=== PATIENT | female | born 1980 | race Caucasian/White ===

== ENCOUNTER 2024-05-10 13:51 | Emergency (ER) | payer MEDICAID ==
[~2024-05-10] VITALS: Ht 152.4 cm; Wt 63.0 kg
[2024-05-10] MEDS ORDERED: DICL250C PO (13:59)
[2024-05-10] MEDS ORDERED: METF-1211 PO (13:59)
[2024-05-10] MEDS ORDERED: CLIN300C58 PO (13:59)
[2024-05-10] MEDS: LIDOCAINE 1% 10 ML VIAL ID ONE (14:56)
[2024-05-10] MEDS: HYDROCODONE/ACETAMINOPHEN 5-325 MG TABLET PO ONE (15:27)
[2024-05-10 16:09] VITALS: BP 150/78; PULSE 105; RESP 20; TEMP 97.9; O2SAT 100
[2024-05-10] MEDS ORDERED: HYDR-4062 PO (16:10)
[2024-05-10] MEDS ORDERED: CEPH-558 PO (16:10)
== END 2024-05-10 16:37 | disposition home or self-care (01) ==
LOC: EMS 13:51
DX: L02.212 Cutaneous abscess of back [any part, except buttock and flank] (principal); E11.9 Type 2 diabetes mellitus without complications
CPT/HCPCS: 99283; 10060; 82962; J3490

== ENCOUNTER 2024-05-17 21:17 | Inpatient (IN) | payer MEDICAID ==
[~2024-05-17] VITALS: Ht 154.9 cm; Wt 61.0 kg
[~2024-05-17 21:17] MED LIST: CEPH-558 PO; CLIN300C58 PO; DICL250C PO; HYDR-4062 PO; METF-1211 PO
[2024-05-18] MEDS: VANCOMYCIN HCL 1.5 GM in DEXTROSE 5%-WATER 250 ML IV ONE (02:56)
[2024-05-18 03:30] LABS: BASOPHILS % (AUTO) 0.3 % (0.0-2.0); EOSINOPHILS % (AUTO) 0.2 % (1.0-6.0); HEMATOCRIT 35.6 % (36-46); HEMOGLOBIN 11.7 g/dL (12.0-16.0); LYMPHOCYTES # (AUTO) 0.9 K/uL (1.0-4.8); LYMPHOCYTES % (AUTO) 5.4 % (22.0-44.0); MEAN CORPUSCULAR HEMOGLOBIN 28.3 pg (26.0-34.0); MEAN CORPUSCULAR HGB CONC 32.9 G/dL (31.0-37.0); MEAN CORPUSCULAR VOLUME 86 fL (80-100); MONOCYTES % (AUTO) 6.3 % (2.0-9.0); NEUTROPHILS # (AUTO) 14.3 K/uL (1.8-7.7); PLATELET COUNT (AUTO) 471 K/uL (150-450); RED BLOOD CELL COUNT(AUTO) 4.14 MIL/uL (4.00-5.20); RED CELL DISTRIBUTION WIDTH 14.9 % (11.5-14.5); WHITE BLOOD COUNT (AUTO) 16.3 K/uL (4.5-11.0)
[2024-05-18 03:31] LABS: NEUTROPHILS % (AUTO) 87.8 % (40.0-70.0)
[2024-05-18 03:38] LABS: ANION GAP 14 mmol/L (8-16); CARBON DIOXIDE 21 mmol/L (22-29); CHLORIDE 96 mmol/L (98-107); CREATININE 0.54 mg/dL (0.60-1.30); GLOMERULAR FILTR. RATE CALC > 60 mL/min (>60); GLUCOSE,RANDOM 329 mg/dL (70-110); POTASSIUM 4.6 mmol/L (3.5-5.1); SODIUM SERUM 130 mmol/L (136-145); UREA NITROGEN, BLOOD 9 mg/dL (7-18)
[2024-05-18] MEDS: HYDROCODONE/ACETAMINOPHEN 5-325 MG TABLET PO ONE (04:10)
[2024-05-18] MEDS ORDERED: 0.9% SODIUM CHLORIDE 10 ML SYRINGE IVP PRN (09:15)
[2024-05-18] MEDS: SODIUM CHLORIDE 0.9% 1,850 ML IV ONE (09:35)
[2024-05-18 09:47] LABS: BASOPHILS % (AUTO) 0.2 % (0.0-2.0); EOSINOPHILS % (AUTO) 0.3 % (1.0-6.0); HEMATOCRIT 33.4 % (36-46); HEMOGLOBIN 10.9 g/dL (12.0-16.0); LYMPHOCYTES # (AUTO) 1.1 K/uL (1.0-4.8); LYMPHOCYTES % (AUTO) 7.7 % (22.0-44.0); MEAN CORPUSCULAR HGB CONC 32.5 G/dL (31.0-37.0); MEAN CORPUSCULAR VOLUME 86 fL (80-100); MONOCYTES # (AUTO) 1.1 K/uL (0.1-1.0); MONOCYTES % (AUTO) 7.6 % (2.0-9.0); NEUTROPHILS # (AUTO) 11.9 K/uL (1.8-7.7); NEUTROPHILS % (AUTO) 84.2 % (40.0-70.0); PLATELET COUNT (AUTO) 421 K/uL (150-450); RED BLOOD CELL COUNT(AUTO) 3.89 MIL/uL (4.00-5.20); RED CELL DISTRIBUTION WIDTH 15.1 % (11.5-14.5); WHITE BLOOD COUNT (AUTO) 14.1 K/uL (4.5-11.0)
[2024-05-18 09:54] LABS: ANION GAP 13 mmol/L (8-16); CALCIUM, TOTAL 8.4 mg/dL (8.8-10.5); CARBON DIOXIDE 19 mmol/L (22-29); CHLORIDE 99 mmol/L (98-107); CREATININE 0.46 mg/dL (0.60-1.30); GLOMERULAR FILTR. RATE CALC > 60 mL/min (>60); GLUCOSE,RANDOM 281 mg/dL (70-110); POTASSIUM 4.2 mmol/L (3.5-5.1); SODIUM SERUM 131 mmol/L (136-145); UREA NITROGEN, BLOOD 6 mg/dL (7-18)
[2024-05-18] MEDS ORDERED: SODIUM CHLORIDE 0.9% 100 ML ONE (09:57)
[2024-05-18] MEDS ORDERED: IOHEXOL 350 MG/ML 100 ML VIAL ONE (09:57)
[2024-05-18] MEDS ORDERED: DEXTROSE 50%-WATER 25 GM/50 ML SYRINGE IVP PRN (10:00)
[2024-05-18 10:01] LABS: ALANINE AMINOTRANSFERASE 19 U/L (12-78); ALBUMIN 1.7 g/dL (3.4-5.0); ALKALINE PHOSPHATASE 185 U/L (46-116); ASPARTATE AMINOTRANSFERASE 9 U/L (15-37); BILIRUBIN,TOTAL 0.3 mg/dL (0.1-1.0); TOTAL PROTEIN, SERUM 6.1 g/dL (6.4-8.2)
[2024-05-18 10:02] LABS: LACTIC ACID 0.7 mmol/L (0.4-2.0)
[2024-05-18 10:18] LABS: LACTATE DEHYDROGENASE 107 U/L (81-234)
[2024-05-18] MEDS: HEPARIN SODIUM,PORCINE 5,000 UNITS/ML VIAL SQ SCH (10:29)
[2024-05-18] MEDS: INSULIN GLARGINE,HUM.REC.ANLOG 100 UNITS/ML SQ SCH (10:29)
[2024-05-18] MEDS: PIPERACILLIN/TAZO 3.375 GM/D5W 50 ML IV SCH (10:38)
[2024-05-18] MEDS ORDERED: NALOXONE HCL 1 MG/ML 2 ML SYRINGE IVP PRN (10:45)
[2024-05-18] MEDS: ONDANSETRON HCL 4 MG/2 ML VIAL IVP PRN (11:08)
[2024-05-18] MEDS: MORPHINE SULFATE 2 MG/ML SYRINGE IVP PRN (11:09)
[2024-05-18 12:21] LABS: GLUCOMETER DEV NAME(LOC) ER.7; GLUCOSE,POINT OF CARE 250 MG/DL (70-110)
[2024-05-18] MEDS: VANCOMYCIN HCL 1 GM/D5% WATER 200 ML IV SCH (15:49)
[2024-05-18] MEDS: INSULIN LISPRO 100 UNITS/ML SQ PRN (16:41)
[2024-05-18] MEDS: DOCUSATE SODIUM 100 MG CAPSULE PO SCH (20:20)
[2024-05-18 21:06] LABS: GLUCOMETER DEV NAME(LOC) ER.7; GLUCOSE,POINT OF CARE 408 MG/DL (70-110)
[2024-05-18] MEDS: ACETAMINOPHEN 325 MG TABLET PO PRN (21:15)
[2024-05-18 21:45] VITALS: BP 136/76; PULSE 103; RESP 18; TEMP 100.8; O2SAT 98
[2024-05-18] MEDS ORDERED: SODIUM CHLORIDE 0.9% 500 ML IV ONE (22:42)
[2024-05-18 22:45] VITALS: TEMP 99.3
[2024-05-18] MEDS: SODIUM CHLORIDE 0.9% 1,000 ML IV ONE (23:42)
[2024-05-19 04:37] VITALS: BP 133/75; PULSE 105; RESP 18; TEMP 98.6; O2SAT 96
[2024-05-19 07:36] LABS: BASOPHILS % (AUTO) 0.3 % (0.0-2.0); EOSINOPHILS % (AUTO) 0.2 % (1.0-6.0); HEMATOCRIT 32.7 % (36-46); HEMOGLOBIN 10.7 g/dL (12.0-16.0); LYMPHOCYTES % (AUTO) 5.8 % (22.0-44.0); MEAN CORPUSCULAR HGB CONC 32.6 G/dL (31.0-37.0); MEAN CORPUSCULAR VOLUME 86 fL (80-100); MONOCYTES % (AUTO) 5.7 % (2.0-9.0); NEUTROPHILS # (AUTO) 15.2 K/uL (1.8-7.7); PLATELET COUNT (AUTO) 443 K/uL (150-450); RED BLOOD CELL COUNT(AUTO) 3.81 MIL/uL (4.00-5.20); RED CELL DISTRIBUTION WIDTH 14.7 % (11.5-14.5); WHITE BLOOD COUNT (AUTO) 17.3 K/uL (4.5-11.0)
[2024-05-19 07:41] LABS: GLUCOMETER DEV NAME(LOC) 6S.1D; GLUCOSE,POINT OF CARE 364 MG/DL (70-110)
[2024-05-19 07:48] LABS: ANION GAP 10 mmol/L (8-16); CALCIUM, TOTAL 8.4 mg/dL (8.8-10.5); CARBON DIOXIDE 23 mmol/L (22-29); CHLORIDE 101 mmol/L (98-107); CREATININE 0.51 mg/dL (0.60-1.30); GLOMERULAR FILTR. RATE CALC > 60 mL/min (>60); GLUCOSE,RANDOM 217 mg/dL (70-110); POTASSIUM 3.2 mmol/L (3.5-5.1); SODIUM SERUM 134 mmol/L (136-145); UREA NITROGEN, BLOOD 8 mg/dL (7-18)
[2024-05-19 09:10] VITALS: BP 142/72; PULSE 107; RESP 18; TEMP 99.3; O2SAT 100
[2024-05-19] MEDS ORDERED: POTASSIUM CHL 10 MEQ/WATER 50 ML IV PRN (09:30)
[2024-05-19] MEDS ORDERED: DEXTROSE 50%-WATER 25 GM/50 ML SYRINGE IVP PRN (09:45)
[2024-05-19] MEDS: POTASSIUM CHLORIDE 20 MEQ ER TABLET PO PRN (11:34)
[2024-05-19] MEDS ORDERED: NALOXONE HCL 1 MG/ML 2 ML SYRINGE IVP PRN (12:00)
[2024-05-19] MEDS: INSULIN LISPRO 100 UNITS/ML SQ PRN (12:13)
[2024-05-19] MEDS ORDERED: SODIUM CHLORIDE 0.9% 250 ML IV ONE (12:31)
[2024-05-19] MEDS: MAGNESIUM SULFATE 3 GM in DEXTROSE 5%-WATER 100 ML IV ONE (13:09)
[2024-05-19 17:08] VITALS: BP 136/72; PULSE 108; RESP 16; TEMP 98.7; O2SAT 100
[2024-05-19 17:55] LABS: GLUCOMETER DEV NAME(LOC) 6S.1D; GLUCOSE,POINT OF CARE 363 MG/DL (70-110)
[2024-05-19 17:55] LABS: GLUCOMETER DEV NAME(LOC) 6S.1D; GLUCOSE,POINT OF CARE 297 MG/DL (70-110)
[2024-05-19 22:55] VITALS: BP 131/71; PULSE 98; RESP 18; TEMP 98.9; O2SAT 99
[2024-05-20] MEDS: SODIUM CHLORIDE 0.9% 500 ML IV ONE (00:28)
[2024-05-20 05:00] VITALS: BP 143/80; PULSE 97; RESP 19; TEMP 98.1; O2SAT 98
[2024-05-20 05:41] LABS: GLUCOMETER DEV NAME(LOC) 6S.1D; GLUCOSE,POINT OF CARE 280 MG/DL (70-110)
[2024-05-20 08:06] LABS: GLUCOMETER DEV NAME(LOC) 6N.2B; GLUCOSE,POINT OF CARE 176 MG/DL (70-110)
[2024-05-20] MEDS: INSULIN GLARGINE,HUM.REC.ANLOG 100 UNITS/ML SQ SCH (08:13)
[2024-05-20 08:49] LABS: ANION GAP 7 mmol/L (8-16); CALCIUM, TOTAL 8.2 mg/dL (8.8-10.5); CARBON DIOXIDE 26 mmol/L (22-29); CHLORIDE 104 mmol/L (98-107); CREATININE 0.52 mg/dL (0.60-1.30); GLOMERULAR FILTR. RATE CALC > 60 mL/min (>60); GLUCOSE,RANDOM 161 mg/dL (70-110); POTASSIUM 3.5 mmol/L (3.5-5.1); SODIUM SERUM 137 mmol/L (136-145); UREA NITROGEN, BLOOD 6 mg/dL (7-18); VANCOMYCIN,RANDOM 13.1 mcg/mL (25.0-50.0)
[2024-05-20 09:06] VITALS: BP 154/85; PULSE 95; RESP 18; TEMP 98.7; O2SAT 100
[2024-05-20 11:41] LABS: GLUCOMETER DEV NAME(LOC) 6S.1D; GLUCOSE,POINT OF CARE 263 MG/DL (70-110)
[2024-05-20 17:41] LABS: APPEARANCE,URINE HAZY (CLEAR); BILIRUBIN,URINE NEGATIVE (NEGATIVE); COLOR,URINE LIGHT YELLOW (YELLOW); GLUCOSE, URINE (UA) >=1000 mg/dL (NEGATIVE); LEUKOCYTE ESTERASE ,URINE SMALL (NEGATIVE); NITRATE,URINE NEGATIVE (NEGATIVE); OCCULT BLOOD,URINE NEGATIVE (NEGATIVE); PROTEIN,URINE 30-70 mg/dL (NEGATIVE); UROBILINOGEN,URINE <=1.0 mg/dL (<=1.0)
[2024-05-20 17:48] LABS: BACTERIA,URINE Rare /HPF (None Seen); RBC,URINE 0-2 /HPF (0-2); SQUAMOUS EPITHELIAL CELL,UR Few /LPF (None Seen)
[2024-05-20] MEDS ORDERED: SODIUM CHLORIDE 0.9% 500 ML IV ONE (19:08)
[2024-05-20] MEDS: CLINDAMYCIN 900 MG/D5% WATER 50 ML IV SCH (19:27)
[2024-05-20 19:45] VITALS: BP 107/56; PULSE 98; RESP 18; TEMP 98; O2SAT 98
[2024-05-20 20:46] LABS: GLUCOMETER DEV NAME(LOC) 6S.1D; GLUCOSE,POINT OF CARE 289 MG/DL (70-110)
[2024-05-20 21:41] LABS: GLUCOMETER DEV NAME(LOC) 5S.1D; GLUCOSE,POINT OF CARE 364 MG/DL (70-110)
[2024-05-21 04:45] VITALS: BP 100/57; PULSE 92; RESP 16; TEMP 100.5; O2SAT 96
[2024-05-21] MEDS: CHLORHEXIDINE GLUCONATE 2% TOWELETTE [2'S/6'S] TP ONE (04:56)
[2024-05-21] MEDS: ETHYL ALCOHOL 62% ANTISEPTIC NASAL SANITIZER 0.6 ML AMPUL NASAL ONE (04:56)
[2024-05-21] MEDS ORDERED: RINGERS SOLUTION,LACTATED 0 ML IV ONE (05:30)
[2024-05-21 05:31] LABS: GLUCOMETER DEV NAME(LOC) 6N.1B; GLUCOSE,POINT OF CARE 108 MG/DL (70-110)
[2024-05-21] MEDS: RINGERS SOLUTION,LACTATED 1,000 ML IV ONE (06:15)
[2024-05-21] MEDS ORDERED: BUPIVACAINE HCL/PF 0.5% 10 ML VIAL ONE (06:40)
[2024-05-21] MEDS ORDERED: LIDOCAINE 2%/EPI 1:200,000/PF 20 ML VIAL ONE (06:40)
[2024-05-21] MEDS ORDERED: RINGERS SOLUTION,LACTATED 1,000 ML IV ONE (06:46)
[2024-05-21] MEDS ORDERED: HYDROmorphone HCL 2 MG/ML SYRINGE IVP PRN (07:00)
[2024-05-21] MEDS ORDERED: MEPERIDINE-PF 25 MG/ML VIAL IVP PRN (07:00)
[2024-05-21] MEDS ORDERED: ACETAMINOPHEN 500 MG TABLET PO PRN (07:45)
[2024-05-21] MEDS ORDERED: ONDANSETRON HCL 4 MG/2 ML VIAL IM PRN (07:45)
[2024-05-21] MEDS ORDERED: FentaNYL CITRATE PF 100 MCG/2 ML VIAL ONE ×2 (07:53→08:36)
[2024-05-21] MEDS: FentaNYL CITRATE PF 100 MCG/2 ML VIAL IVP PRN (07:54)
[2024-05-21] MEDS: HYDROGEN PEROXIDE 473 ML SOLUTION ONE (08:34)
[2024-05-21 10:26] VITALS: BP 102/64; PULSE 76; RESP 20; TEMP 98.1; O2SAT 98
[2024-05-21] MEDS: OXYGEN THERAPY IH SCH (10:26)
[2024-05-21 10:56] LABS: GLUCOMETER DEV NAME(LOC) 6N.1B; GLUCOSE,POINT OF CARE 190 MG/DL (70-110)
[2024-05-21 11:40] LABS: BASOPHILS % (AUTO) 0.2 % (0.0-2.0); EOSINOPHILS % (AUTO) 0.2 % (1.0-6.0); HEMATOCRIT 27.3 % (36-46); HEMOGLOBIN 8.9 g/dL (12.0-16.0); LYMPHOCYTES # (AUTO) 1.2 K/uL (1.0-4.8); LYMPHOCYTES % (AUTO) 7.3 % (22.0-44.0); MEAN CORPUSCULAR HEMOGLOBIN 28.3 pg (26.0-34.0); MEAN CORPUSCULAR HGB CONC 32.6 G/dL (31.0-37.0); MEAN CORPUSCULAR VOLUME 87 fL (80-100); MONOCYTES # (AUTO) 0.9 K/uL (0.1-1.0); MONOCYTES % (AUTO) 5.6 % (2.0-9.0); NEUTROPHILS # (AUTO) 14.2 K/uL (1.8-7.7); PLATELET COUNT (AUTO) 322 K/uL (150-450); RED BLOOD CELL COUNT(AUTO) 3.15 MIL/uL (4.00-5.20); RED CELL DISTRIBUTION WIDTH 15.1 % (11.5-14.5); WHITE BLOOD COUNT (AUTO) 16.4 K/uL (4.5-11.0)
[2024-05-21 11:42] LABS: NEUTROPHILS % (AUTO) 86.7 % (40.0-70.0)
[2024-05-21 11:55] LABS: ANION GAP 9 mmol/L (8-16); CALCIUM, TOTAL 7.8 mg/dL (8.8-10.5); CARBON DIOXIDE 26 mmol/L (22-29); CHLORIDE 105 mmol/L (98-107); CREATININE 0.84 mg/dL (0.60-1.30); GLOMERULAR FILTR. RATE CALC > 60 mL/min (>60); GLUCOSE,RANDOM 217 mg/dL (70-110); SODIUM SERUM 139 mmol/L (136-145); UREA NITROGEN, BLOOD 14 mg/dL (7-18)
[2024-05-21] MEDS ORDERED: KETOROLAC TROMETHAMINE 60 MG/2 ML VIAL IM ONE (12:00)
[2024-05-21] MEDS ORDERED: FentaNYL CITRATE PF 100 MCG/2 ML VIAL IVP ONE (12:00)
[2024-05-21] MEDS ORDERED: PROPOFOL 1% 20 ML VIAL IVP ONE (12:00)
[2024-05-21] MEDS ORDERED: 0.9% SODIUM CHLORIDE 10 ML VIAL IVP ONE (12:00)
[2024-05-21] MEDS ORDERED: LIDOCAINE/PF 2% 5 ML VIAL IM ONE (12:00)
[2024-05-21] MEDS ORDERED: ONDANSETRON HCL 4 MG/2 ML VIAL IVP ONE (12:00)
[2024-05-21] MEDS ORDERED: SUGAMMADEX SODIUM 200 MG/2 ML VIAL IVP ONE (12:00)
[2024-05-21] MEDS ORDERED: MIDAZOLAM HCL 2 MG/2 ML VIAL IVP ONE (12:00)
[2024-05-21] MEDS ORDERED: ROCURONIUM BROMIDE 10 MG/ML 5 ML VIAL IVP ONE (12:00)
[2024-05-21 16:31] VITALS: BP 128/69; PULSE 86; RESP 19; TEMP 98.2; O2SAT 98
[2024-05-21] MEDS: HYDROCODONE/ACETAMINOPHEN 5-325 MG TABLET PO PRN (17:01)
[2024-05-21 17:05] LABS: GLUCOMETER DEV NAME(LOC) 6N.1B; GLUCOSE,POINT OF CARE 435 MG/DL (70-110)
[2024-05-21] MEDS: INSULIN LISPRO 100 UNITS/ML SQ ONE (17:57)
[2024-05-21 19:34] VITALS: BP 116/61; PULSE 92; RESP 18; TEMP 98.7; O2SAT 94
[2024-05-21 23:10] LABS: GLUCOMETER DEV NAME(LOC) 6N.1B; GLUCOSE,POINT OF CARE 302 MG/DL (70-110)
[2024-05-22] MEDS: MORPHINE SULFATE 2 MG/ML SYRINGE IVP PRN (03:31)
[2024-05-22 04:31] VITALS: BP 117/67; PULSE 82; RESP 18; TEMP 99.4; O2SAT 92
[2024-05-22 06:46] LABS: GLUCOMETER DEV NAME(LOC) 6N.1B; GLUCOSE,POINT OF CARE 186 MG/DL (70-110)
[2024-05-22 07:28] LABS: BASOPHILS % (AUTO) 0.4 % (0.0-2.0); EOSINOPHILS % (AUTO) 2.6 % (1.0-6.0); HEMATOCRIT 24.7 % (36-46); HEMOGLOBIN 8.2 g/dL (12.0-16.0); LYMPHOCYTES # (AUTO) 1.3 K/uL (1.0-4.8); LYMPHOCYTES % (AUTO) 16.6 % (22.0-44.0); MEAN CORPUSCULAR HEMOGLOBIN 28.6 pg (26.0-34.0); MEAN CORPUSCULAR HGB CONC 33.1 G/dL (31.0-37.0); MEAN CORPUSCULAR VOLUME 86 fL (80-100); MONOCYTES # (AUTO) 0.6 K/uL (0.1-1.0); MONOCYTES % (AUTO) 8.1 % (2.0-9.0); NEUTROPHILS # (AUTO) 5.7 K/uL (1.8-7.7); NEUTROPHILS % (AUTO) 72.3 % (40.0-70.0); PLATELET COUNT (AUTO) 345 K/uL (150-450); RED BLOOD CELL COUNT(AUTO) 2.86 MIL/uL (4.00-5.20); RED CELL DISTRIBUTION WIDTH 14.9 % (11.5-14.5)
[2024-05-22 07:48] LABS: ANION GAP 6 mmol/L (8-16); CALCIUM, TOTAL 8.2 mg/dL (8.8-10.5); CARBON DIOXIDE 28 mmol/L (22-29); CHLORIDE 104 mmol/L (98-107); CREATININE 0.93 mg/dL (0.60-1.30); GLOMERULAR FILTR. RATE CALC > 60 mL/min (>60); GLUCOSE,RANDOM 185 mg/dL (70-110); POTASSIUM 4.7 mmol/L (3.5-5.1); SODIUM SERUM 138 mmol/L (136-145); UREA NITROGEN, BLOOD 14 mg/dL (7-18); VANCOMYCIN,RANDOM 28.9 mcg/mL (25.0-50.0)
[2024-05-22 08:07] VITALS: BP 108/67; PULSE 83; RESP 20; TEMP 98.8; O2SAT 96
[2024-05-22 08:30] LABS: GLUCOMETER DEV NAME(LOC) 6N.1B; GLUCOSE,POINT OF CARE 145 MG/DL (70-110)
[2024-05-22 11:30] LABS: GLUCOMETER DEV NAME(LOC) 5S.1D; GLUCOSE,POINT OF CARE 244 MG/DL (70-110)
[2024-05-22 16:22] VITALS: BP 123/62; PULSE 87; RESP 20; TEMP 98; O2SAT 98
[2024-05-22 20:08] VITALS: BP 142/81; PULSE 88; RESP 18; TEMP 98.2; O2SAT 97
[2024-05-22] MEDS: VANCOMYCIN HCL 1 GM/D5% WATER 200 ML IV SCH (20:29)
[2024-05-23 05:34] VITALS: BP 130/67; PULSE 78; RESP 18; TEMP 98.2; O2SAT 96
[2024-05-23] MEDS: ETHYL ALCOHOL 62% ANTISEPTIC NASAL SANITIZER 0.6 ML AMPUL NASAL ONE (05:37)
[2024-05-23] MEDS: CHLORHEXIDINE GLUCONATE 2% TOWELETTE [2'S/6'S] TP ONE (05:45)
[2024-05-23 07:12] LABS: ANION GAP 8 mmol/L (8-16); CALCIUM, TOTAL 8.3 mg/dL (8.8-10.5); CARBON DIOXIDE 28 mmol/L (22-29); CHLORIDE 106 mmol/L (98-107); CREATININE 0.88 mg/dL (0.60-1.30); GLOMERULAR FILTR. RATE CALC > 60 mL/min (>60); GLUCOSE,RANDOM 94 mg/dL (70-110); SODIUM SERUM 142 mmol/L (136-145); UREA NITROGEN, BLOOD 11 mg/dL (7-18)
[2024-05-23 07:38] LABS: BASOPHILS % (AUTO) 0.6 % (0.0-2.0); EOSINOPHILS % (AUTO) 2.9 % (1.0-6.0); HEMATOCRIT 23.3 % (36-46); HEMOGLOBIN 7.7 g/dL (12.0-16.0); LYMPHOCYTES # (AUTO) 1.3 K/uL (1.0-4.8); LYMPHOCYTES % (AUTO) 19.6 % (22.0-44.0); MEAN CORPUSCULAR HEMOGLOBIN 28.1 pg (26.0-34.0); MEAN CORPUSCULAR VOLUME 85 fL (80-100); MONOCYTES # (AUTO) 0.7 K/uL (0.1-1.0); MONOCYTES % (AUTO) 9.9 % (2.0-9.0); NEUTROPHILS # (AUTO) 4.4 K/uL (1.8-7.7); PLATELET COUNT (AUTO) 410 K/uL (150-450); RED BLOOD CELL COUNT(AUTO) 2.75 MIL/uL (4.00-5.20); RED CELL DISTRIBUTION WIDTH 14.9 % (11.5-14.5); WHITE BLOOD COUNT (AUTO) 6.6 K/uL (4.5-11.0)
[2024-05-23 07:55] VITALS: BP 118/68; PULSE 72; RESP 18; TEMP 98.2; O2SAT 97
[2024-05-23 11:01] LABS: GLUCOMETER DEV NAME(LOC) 5S.1D; GLUCOSE,POINT OF CARE 223 MG/DL (70-110)
[2024-05-23 11:01] LABS: GLUCOMETER DEV NAME(LOC) 5S.1D; GLUCOSE,POINT OF CARE 106 MG/DL (70-110)
[2024-05-23 11:01] LABS: GLUCOMETER DEV NAME(LOC) 5S.1D; GLUCOSE,POINT OF CARE 309 MG/DL (70-110)
[2024-05-23] MEDS: RINGERS SOLUTION,LACTATED 1,000 ML IV ONE (12:35)
[2024-05-23 15:47] VITALS: BP 153/77; PULSE 84; RESP 18; TEMP 98.1; O2SAT 98
[2024-05-23 19:16] LABS: GLUCOMETER DEV NAME(LOC) 5S.1D; GLUCOSE,POINT OF CARE 205 MG/DL (70-110)
[2024-05-23 19:43] VITALS: BP 149/80; PULSE 90; RESP 18; TEMP 98.3; O2SAT 99
[2024-05-23 21:36] LABS: GLUCOMETER DEV NAME(LOC) 5S.1D; GLUCOSE,POINT OF CARE 186 MG/DL (70-110)
[2024-05-24] MEDS ORDERED: SODIUM CHLORIDE 0.9% 500 ML IV ONE (05:15)
[2024-05-24 05:21] LABS: GLUCOMETER DEV NAME(LOC) 4E.2; GLUCOSE,POINT OF CARE 226 MG/DL (70-110)
[2024-05-24 05:29] VITALS: BP 155/85; PULSE 90; RESP 18; TEMP 98.4; O2SAT 99
[2024-05-24 07:11] LABS: GLUCOMETER DEV NAME(LOC) 6N.1B; GLUCOSE,POINT OF CARE 82 MG/DL (70-110)
[2024-05-24 08:03] VITALS: BP 140/78; PULSE 81; RESP 20; TEMP 98.2; O2SAT 97
[2024-05-24 08:47] LABS: CALCIUM, TOTAL 9.1 mg/dL (8.8-10.5); CREATININE 1.14 mg/dL (0.60-1.30); POTASSIUM 3.8 mmol/L (3.5-5.1)
[2024-05-24 13:36] LABS: GLUCOMETER DEV NAME(LOC) 5S.1D; GLUCOSE,POINT OF CARE 165 MG/DL (70-110)
[2024-05-24 14:17] VITALS: BP 153/78; PULSE 79; RESP 18; TEMP 98.4; O2SAT 97
[2024-05-24 15:47] VITALS: BP 160/81; PULSE 76; RESP 20; TEMP 98; O2SAT 96
[2024-05-24] MEDS: AmLODIPine BESYLATE 5 MG TABLET PO ONE (19:08)
[2024-05-24 20:05] VITALS: BP 161/78; PULSE 77; RESP 20; TEMP 98.2; O2SAT 99
[2024-05-24 21:26] LABS: GLUCOMETER DEV NAME(LOC) 4E.2; GLUCOSE,POINT OF CARE 215 MG/DL (70-110)
[2024-05-24 22:41] LABS: GLUCOMETER DEV NAME(LOC) 6N.1B; GLUCOSE,POINT OF CARE 250 MG/DL (70-110)
[2024-05-25 05:38] VITALS: BP 147/79; PULSE 83; RESP 20; TEMP 98.5; O2SAT 95
[2024-05-25 06:20] LABS: GLUCOMETER DEV NAME(LOC) 6N.1B; GLUCOSE,POINT OF CARE 103 MG/DL (70-110)
[2024-05-25 07:41] LABS: CALCIUM, TOTAL 8.6 mg/dL (8.8-10.5); CREATININE 1.06 mg/dL (0.60-1.30); POTASSIUM 3.8 mmol/L (3.5-5.1); VANCOMYCIN,RANDOM 23.8 mcg/mL (25.0-50.0)
[2024-05-25] MEDS: AmLODIPine BESYLATE 5 MG TABLET PO SCH (08:14)
[2024-05-25 08:45] VITALS: BP 135/67; PULSE 74; RESP 20; TEMP 98.3; O2SAT 95
[2024-05-25] MEDS: VANCOMYCIN HCL 750 MG in DEXTROSE 5%-WATER 250 ML IV SCH (09:01)
[2024-05-25 12:11] LABS: GLUCOMETER DEV NAME(LOC) 5S.1D; GLUCOSE,POINT OF CARE 319 MG/DL (70-110)
[2024-05-25] MEDS ORDERED: METF-1211 PO (15:56)
[2024-05-25] MEDS ORDERED: GLIP10TA17 PO (15:56)
[2024-05-25] MEDS ORDERED: AMOX-457 PO (15:56)
[2024-05-25] MEDS ORDERED: AMLO-257 PO (15:56)
[2024-05-25 18:10] LABS: GLUCOMETER DEV NAME(LOC) 5S.1D; GLUCOSE,POINT OF CARE 260 MG/DL (70-110)
== END 2024-05-25 19:00 | disposition home or self-care (01) | DRG 720 ==
LOC: EMS 21:24 → EDH 05-18 09:05 → 6S 05-18 20:55 → 4E 05-20 17:15
PROVIDERS: ADMIT Internal Medicine; ATTEND Internal Medicine
PROC: 0JB70ZZ Excision of Back Subcutaneous Tissue and Fascia, Open Approach (ICD-10-PCS; principal; 2024-05-21 07:00)
DX: A41.9 Sepsis, unspecified organism (principal); L02.212 Cutaneous abscess of back [any part, except buttock and flank]; E11.65 Type 2 diabetes mellitus with hyperglycemia; L03.113 Cellulitis of right upper limb; L02.413 Cutaneous abscess of right upper limb; I10 Essential (primary) hypertension; M54.6 Pain in thoracic spine; Z79.899 Other long term (current) drug therapy; T38.3X6A Underdosing of insulin and oral hypoglycemic [antidiabetic] drugs, initial encounter; L03.312 Cellulitis of back [any part except buttock and flank]; Z79.84 Long term (current) use of oral hypoglycemic drugs; Z91.148 Patient's other noncompliance with medication regimen for other reason; Y92.89 Other specified places as the place of occurrence of the external cause
CPT/HCPCS: 73201; 73220; 80048; 80053; 80202; 81001; 82962; 83036; 83605; 83615; 83735; 84132; 84145; 84703; 85025; 85730; 87040; 87070; 87081; 87101; 87205; 88305; 99285; G0378; J1644; J1815; J1885; J2250; J2270; J2405; J2543; J2704; J3010; J3370; J3475; J3490; J7030; J7040; J7050; J7060; J7120; 36415-L1; 36415-TC